=== PATIENT | male | born 1985 | race African-American/Black ===

== ENCOUNTER 2021-02-28 14:35 | Emergency (ER) | payer OTHER, SELFPAY ==
--- NOTE | ~2021-02-28 | XR_ITS ---
EXAMINATION: XR shoulder LT min 2V DATE: 02/28/2021 15:49 INDICATION: Left shoulder pain post injury TECHNIQUE: AP internally and externally rotated, AP oblique externally rotated, axillary and transsca pular Y views of the left shoulder were obtained. COMPARISON: None FINDINGS: Normal alignment. No fracture. Glenohumeral joint is normal. Mild acromioclavicular osteoarthritis. Soft tissues are unremarkable. Mild thoracic spondylosis. Visualized portion of the lungs are clear. IMPRESSION: No acute osseous abnormality. Reviewed, dictated and finalized at location A.
--- NOTE | ~2021-02-28 | XR_ITS ---
EXAMINATION: XR forearm RT 2V INDICATION: Right forearm pain TECHNIQUE: Two views of the right forearm are obtained. COMPARISON: None available FINDINGS: There is no fracture, dislocation, or subluxation. Dorsal lateral soft tissue swelling is s een overlying the distal forearm. Bone alignment at the wrist and elbow is normal. The joint spaces a re normal. IMPRESSION: 1. Soft tissue swelling without acute osseous abnormality. Reviewed, dictated and finalized at location A.
--- NOTE | ~2021-02-28 | XR_ITS ---
EXAMINATION: XR hand RT min 3V INDICATION: Right hand pain TECHNIQUE: Four views of the right hand are obtained. COMPARISON: None available FINDINGS: There is no fracture, dislocation, or subluxation. The bones, soft tissues, and joint space s are normal. IMPRESSION: 1. No acute osseous abnormality. Reviewed, dictated and finalized at location A.
--- NOTE | ~2021-02-28 | XR_ITS ---
XR finger 1st LT min 2V 02/28/2021 15:49 INDICATION: Left first finger PROCEDURE: Left first finger pain COMPARISON: No prior studies for comparison. FINDINGS: Fracture, dislocation or subluxation is not identified. There is mild osteoarthritis of the first MCP joint. The soft tissues appear within normal limits. No foreign bodies are identified. IMPRESSION: 1: NO ACUTE BONE OR JOINT ABNORMALITY IDENTIFIED. Reviewed, dictated and finalized at location B.
[2021-02-28 15:21] VITALS: BP 116/69; PULSE 71; RESP 16; TEMP 37.1; O2SAT 100
[2021-02-28] MEDS: HYDROcodone/acetaminophen (*CRX) 5-325 MG TABLET 1 TAB PO (16:10)
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
[2021-02-28 17:02] VITALS: BP 121/70; PULSE 66; RESP 14; TEMP 36.9; O2SAT 100
== END 2021-02-28 17:04 | disposition home or self-care (01) ==
LOC: ANHED 16:58
PROVIDERS: Emergency Provider Emergency Medicine
DX: S60.222A Contusion of left hand, initial encounter (principal); S60.221A Contusion of right hand, initial encounter; S50.11XA Contusion of right forearm, initial encounter; S40.012A Contusion of left shoulder, initial encounter; V48.0XXA Car driver injured in noncollision transport accident in nontraffic accident, initial encounter
CPT/HCPCS: 73030; 73090; 73130; 73140; 99284; A9270

== ENCOUNTER 2021-05-12 09:30 | Emergency (ER) | payer SELFPAY ==
[2021-05-12 09:56] VITALS: BP 106/66; PULSE 83; RESP 16; TEMP 37.3; O2SAT 100
--- NOTE | 2021-05-12 12:06 | ED.URI ---
HPI - URI/Sore Throat General Chief Complaint: Upper Respiratory Infection Stated Complaint: covid exposure Time Seen by Provider: 05/12/21 11:18 Source: patient Mode of arrival: ambulatory Limitations: no limitations History of Present Illness HPI Narrative: This is a 35 year old male that presents to the ER for COVID testing. Reports his children were possibly exposed to COVID. They are having symptoms, but the patient himself is asymptomatic. He is Covid vaccinated. Denies fever, cough, sore throat, or congestion. Related Data Allergies Allergy/AdvReac Type Severity Reaction Status Date / Time No Known Allergies Allergy Verified 02/28/21 16:11 Review of Systems Review of Systems: CONSTITUTIONAL: Denies fever ENT: Denies rhinorrhea, congestion, sore throat RESPIRATORY: Denies cough All systems reviewed & are unremarkable except as noted in HPI and below PMFSH Past Medical History Medical History (Updated 05/12/21 @ 12:13 by Lyn Rowell PA-C) No active medical problems Social History Social History (Updated 05/12/21 @ 12:10 by Lyn Rowell PA-C) Substance use: current Substance use type: marijuana Exam Narrative: GENERAL: Well-appearing, well-nourished, and in no acute distress. HEAD: Normocephalic, atraumatic. EYES: EOMI. ENT: Nares clear, no rhinorrhea or epistaxis. Mucous membranes moist. Oropharynx without tonsillar hypertrophy exudate or other lesions. Bilateral TMs pearly wesley non-bulging NECK: Supple. No adenopathy or masses. CHEST: Clear to auscultation. No respiratory distress. No wheezes rales or rhonchi HEART: Regular rate and rhythm. No murmur heard. Normal peripheral pulses. EXTREMITIES: Normal range of motion. No edema. SKIN: Warm, dry, no rash. NEURO: No focal deficits. Alert and oriented x3. PSYCH: Normal mood and affect Course Vital Signs Vital signs: Vital Signs Temperature 99.1 F 05/12/21 09:56 Pulse Rate 83 05/12/21 09:56 Respiratory Rate 16 05/12/21 09:56 Blood Pressure 106/66 05/12/21 09:56 Pulse Oximetry 100 05/12/21 09:56 Temperature 99.1 F 05/12/21 09:56 Pulse Rate 83 05/12/21 09:56 Respiratory Rate 16 05/12/21 09:56 Blood Pressure 106/66 05/12/21 09:56 Pulse Oximetry 100 05/12/21 09:56 MDM - URI/Sore Throat MDM Narrative Medical decision making narrative: Patient presents to the emergency department for Covid testing. Reports his children were possibly exposed. He is asymptomatic currently. He is also vaccinated. I did speak with patient about the fact that we are very low on Covid testing supplies and are currently not testing asymptomatic individuals. He was instructed to self isolate until the results of his children's test are back and to monitor for symptoms. Critical Care Time Critical Care Time Critical Care Time: No Discharge Plan Discharge Clinical Impression: Viral disease exposure Patient Disposition: Home, Self-Care Condition: Stable Instructions: COVID-19 (Coronavirus Disease 2019) (ED) Additional Instructions: Return to the emergency department if you experience fever, chest pain, shortness of breath, or any other symptoms that are concerning to you Continue to remain self isolated until the results of your children's testing is back. Monitor for symptoms in your self Prescriptions: No Action cyclobenzaprine 10 mg tablet 10 mg PO TID PRN (Reason: muscle spasm) Qty: 14 RF: 0 ibuprofen [IBU] 600 mg tablet 600 mg PO QID PRN (Reason: fever or pain) Qty: 7 RF: 0 Follow-up/Referrals: PHYSICIAN,STILL PHOTOGRAPHER [Primary Care Provider] - Silvano Mckinnon MD [Physician] - 3 Days
[2021-05-12 12:38] VITALS: O2SAT 98
== END 2021-05-12 13:11 | disposition home or self-care (01) ==
PROVIDERS: Emergency Provider Emergency Medicine
DX: Z20.822 Contact with and (suspected) exposure to COVID-19 (principal)
CPT/HCPCS: 99281

== ENCOUNTER 2021-05-21 20:04 | Emergency (ER) | payer OTHER, SELFPAY ==
[2021-05-21 20:14] VITALS: BP 102/64; PULSE 89; RESP 14; TEMP 37.1
--- NOTE | 2021-05-21 21:01 | PC.NURSE ---
pt. went out of [facility] door without notice of intentions to staff. Pt. in NAD, no increased work of breathing. Gait steady and brisk.
== END 2021-05-21 21:01 | disposition left against medical advice (07) ==
LOC: ANHED 21:13
DX: R05.9 Cough, unspecified (principal)
CPT/HCPCS: 99199

== ENCOUNTER 2021-10-01 02:56 | Emergency (ER) | payer OTHER, SELFPAY ==
[2021-10-01] VITALS (13 sets, daily range): BP systolic 117–126; BP diastolic 78–85; PULSE 63–85; RESP 14–24; TEMP 36.4; O2SAT 97–100
--- NOTE | ~2021-10-01 | CT_ITS ---
EXAMINATION: CT brain wo con DATE: 10/01/2021 04:06 INDICATION: Syncope. TECHNIQUE: Computed tomography (CT) of the head was performed without intravenous contrast. The mA wa s adjusted according to patient size. Iterative reconstruction technique was employed. The dose-lengt h product was 681.00 mGy-cm. COMPARISON: None FINDINGS: There is no intracranial hemorrhage, acute infarction, or abnormal intracranial mass lesion . There are prominent perivascular spaces in the deep cerebral white matter. The ventricles are celine l in size. There is mild mucosal thickening in the paranasal sinuses. The orbits are normal. The mast oid air cells are normal. IMPRESSION: 1. Normal brain. Reviewed, dictated and finalized at location A. IMPRESSION: 1. Normal brain.
--- NOTE | 2021-10-01 03:14 | ECG_ITS ---
Measurements Intervals [place] Rate: 66 P: 11 [place]: 147 QRS: 42 QRSD: 90 T: 25 QT: 389 QTc: 408 Interpretive Statements SINUS RHYTHM NORMAL ECG Electronically Signed On 10-01-2021 5:42:13 CDT by Rafat Matos D.O.
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
[2021-10-01 03:36] LABS: Basophils Percent Auto 0.2 % (0.2-1.2); Eosinophils Absolute Auto 0.2 K/mm3 (0-0.3); Eosinophils Percent Auto 1.2 % (0-4.4); Hematocrit 46.8 % (42.0-52.0); Immature Granulocyte Absolute 0.07 K/mm3 (0.00-0.031); Immature Granulocyte Percent A 0.5 % (0-0.5); Lymphocytes Absolute Auto 1.69 K/mm3 (0.9-3.2); Lymphocytes Percent Auto 11.3 % (18.3-44.2); Mean Corpuscular HGB Conc 32.1 g/dl (32-36); Mean Corpuscular Hemoglobin 28.7 pg (26-34); Mean Corpuscular Volume 89.7 fl (80-100); Mean Platelet Volume 9.9 fl (7.4-10.4); Monocytes Absolute Auto 1.2 K/mm3 (0.1-0.6); Monocytes Percent Auto 7.7 % (2.6-8.5); Neutrophils Absolute Auto 11.8 K/mm3 (1.3-6.7); Neutrophils Percent Auto 79.1 % (45.5-73.1); Platelet Count Result 229 k/mm3 (150-375); Red Blood Count 5.22 M/mm3 (4.6-6.20); White Blood Count 14.9 K/mm3 (4.5-10.0)
[2021-10-01 03:47] LABS: Alanine Aminotransferase 33 U/L (6-50); Albumin Level 3.7 g/dL (3.5-5.1); Alkaline Phosphatase 53 U/L (38-126); Anion Gap 6 mmol/L (8-16); Aspartate Amino Transferase 55 U/L (17-59); Bilirubin,Total 0.3 mg/dL (0.2-1.3); Blood Urea Nitrogen 14 mg/dL (9-20); Calcium 8.3 mg/dL (8.4-10.2); Carbon Dioxide 29 mmol/L (22-30); Chloride 106 mmol/L (98-107); Estimated CRCL calculation 82 ml/min; Estimated Glomerular Filt Rate > 60; Ethanol < 10 mg/dL (<10); Glucose 158 mg/dL (65-110); Magnesium 1.9 mg/dL (1.6-2.3); Sodium 141 mmol/L (137-145)
[2021-10-01] MEDS: SODIUM CHLORIDE 0.9% IV 1,000 ML 999 ML IV CONT (05:22)
--- NOTE | 2021-10-01 05:25 | PC.NURSE ---
Patient refused catheter and has not been able to give a urine sample yet.
== END 2021-10-01 07:11 | disposition home or self-care (01) ==
PROVIDERS: Emergency Provider Emergency Medicine
DX: R55 Syncope and collapse (principal); R19.7 Diarrhea, unspecified; D72.829 Elevated white blood cell count, unspecified
CPT/HCPCS: 36415; 70450; 80053; 80307; 83735; 85025; 93005; 96360; 99284; J7030